=== PATIENT | male | born 1990 | race Caucasian/White ===

== ENCOUNTER 2017-02-05 10:18 | Emergency (ER) | payer OTHER ==
[~2017-02-05] VITALS: Ht 167.6 cm; Wt 93.9 kg
[2017-02-05 10:22] VITALS: BP_SYST 187
[2017-02-05] MEDS ORDERED: MIDAZOLAM HCL 5 MG/5 ML VIAL IVP ONE (11:15)
[2017-02-05] MEDS ORDERED: ETOMIDATE 20 MG/ 10 ML VIAL (AMIDATE) IVP ONE (11:15)
[2017-02-05] MEDS ORDERED: ONDANSETRON HCL 4 MG/2 ML VIAL IVP ONE (13:15)
[2017-02-05] MEDS ORDERED: MORPHINE 4 MG/ML INJ. SYRINGE IVP ONE (13:15)
[2017-02-05 13:45] VITALS: BP_SYST 141
== END 2017-02-05 13:45 | disposition home or self-care (01) ==
LOC: SED 10:18
DX: M25.521 Pain in right elbow (principal); S42.491A Other displaced fracture of lower end of right humerus, initial encounter for closed fracture; S53.194A Other dislocation of right ulnohumeral joint, initial encounter; W11.XXXA Fall on and from ladder, initial encounter; Y93.89 Activity, other specified; Y92.89 Other specified places as the place of occurrence of the external cause; Y99.8 Other external cause status
CPT/HCPCS: 24505; 73070; 73080; 96374; 96375; 99152; 99153; 99285; J2250; J2270; J2405; J3490